=== PATIENT | male | born 1995 | race African-American/Black ===

== ENCOUNTER 2019-04-24 13:42 | Emergency (ER) | payer SELFPAY ==
--- NOTE | 2019-04-24 14:29 | ED ---
Throat Pain/Nasal Congestion - HPI Summary HPI Summary: Patient is a 24-year-old male who presents emergency department for sore throat 2 days. Patient notes he has had strep throat in the past. Patient isn't taking Mucinex with minimal improvement of symptoms. Notes mild cough. Denies fever, neck pain, abdominal pain, rash. Symptoms are mild in severity. Patient notes it is too painful to swallow and is spitting out his saliva. - History of Current Complaint Chief Complaint: EDThroatPain Time Seen by Provider: 04/24/19 14:25 Hx Obtained From: Patient - Allergies/Home Medications Allergies/Adverse Reactions: Allergies Allergy/AdvReac Type Severity Reaction Status Date / Time No Known Allergies Allergy Verified 04/24/19 13:54 PMH/Surg Hx/FS Hx/Imm Hx Previously Healthy: Yes Infectious Disease History: No Infectious Disease History: Denies: Traveled Outside the [place] in Last 30 Days - Family History Known Family History: Positive: Non-Contributory - Social History Occupation: Employed Full-time Lives: With Family Alcohol Use: Occasionally Substance Use Type: Reports: Marijuana Smoking Status (MU): Current Every Day Smoker Review of Systems Constitutional: Negative Negative: Fever, Chills Positive: Sore Throat Cardiovascular: Negative Positive: Cough Positive: Nausea. Negative: Abdominal Pain, Vomiting, Diarrhea Skin: Negative Neurological: Negative All Other Systems Reviewed And Are Negative: Yes Physical Exam Triage Information Reviewed: Yes Vital Signs On Initial Exam: Initial Vitals Temp Pulse Resp BP Pulse Ox 98.6 F 91 16 141/83 97 04/24/19 13:52 04/24/19 13:52 04/24/19 13:52 04/24/19 13:52 04/24/19 13:52 Vital Signs Reviewed: Yes Appearance: Positive: Well-Appearing - Pt. sitting on bed in NAD. Skin: Positive: Warm, Dry Head/Face: Positive: Normal Head/Face Inspection Eyes: Positive: Normal, EOMI, SIMEON ENT: Positive: TMs normal, Other - Oropharynx with injection of bilateral moderate tonsillar edema without exudates. Uvula is midline without deviation. No pooling of secretions or trismus. Anterior cervical lymphadenopathy noted. Neck: Positive: Supple. Negative: Nuchal Rigidity Respiratory/Lung Sounds: Positive: Clear to Auscultation, Breath Sounds Present Cardiovascular: Positive: Normal, RRR Neurological: Positive: Normal, CN Intact II-III Psychiatric: Positive: Affect/Mood Appropriate Diagnostics - Vital Signs Vital Signs Temp Pulse Resp BP Pulse Ox 04/24/19 13:52 98.6 F 91 16 141/83 97 - Laboratory Lab Statement: Any lab studies that have been ordered have been reviewed, and results considered in the medical decision making process. EENT Course/Dx - Course Course Of Treatment: Patient presenting with tonsillar edema. Is afebrile and well-appearing. Strep is negative. Patient is given a dose of ibuprofen and magic swizzle for pain control. We'll treat conservatively at this time. Advised ibuprofen as directed. Prescription for magic swizzle sent to pharmacy. Increase fluids and rest. We'll return to the ER if symptoms change or worsen. Patient understands and agrees with plan. - Differential Diagnoses Differential Diagnoses: Laryngitis, Pharyngitis, Tonsilitis - Diagnoses Provider Diagnoses: Viral pharyngitis Discharge ED - Sign-Out/Discharge Documenting (check all that apply): Patient Departure Patient Received Moderate/Deep Sedation with Procedure: No - Discharge Plan Condition: Improved Disposition: HOME Prescriptions: Magic Mouth Was-MOISES/MAAL/LIDO* 5 ml SWISH SPIT QID #60 ml Patient Education Materials: Pharyngitis (ED) Forms: *Work Release Referrals: [facility] [Outside] Additional Instructions: Follow up [facility] if symptoms persist Increase fluids and rest Ibuprofen for pain as directed Return to ER if symptoms change or worsen - Billing Disposition and Condition Condition: IMPROVED Disposition: Home
[2019-04-24 14:53] LABS: Rapid Strep Molecular Negative (Negative)
[2019-04-24] MEDS ORDERED: Ibuprofen TAB* 800 MG PO ONE (15:40)
[2019-04-24 16:22] VITALS: BP 142/78
[2019-04-24] MEDS ORDERED: Magic Mouth Was-BEN/MAAL/LIDO SWISH SWAL SCH (17:00)
== END 2019-04-24 16:17 | disposition home or self-care (01) ==
LOC: ED 13:42
DX: J02.8 Acute pharyngitis due to other specified organisms (principal); B97.89 Other viral agents as the cause of diseases classified elsewhere; F17.200 Nicotine dependence, unspecified, uncomplicated
CPT/HCPCS: 87651; 99282; A9270-GY